=== PATIENT | female | born 1965 | race Caucasian/White ===

== ENCOUNTER 2018-11-09 19:38 | Emergency (ER) | payer OTHER ==
[~2018-11-09] VITALS: Ht 152.4 cm; Wt 108.9 kg
[~2018-11-09 19:38] MED LIST: NO HOME MEDS; NORCO 7.5-3251 EACH PO
[2018-11-09] MEDS ORDERED: ZYRTEC10 M5 PO (20:47)
[2018-11-09] MEDS ORDERED: IBUPROFEN 200200 M1 PO (20:48)
[2018-11-09] MEDS ORDERED: NAPROSYN500 MG PO (21:48)
[2018-11-09 22:14] VITALS: BP 172/84
== END 2018-11-09 22:14 | disposition home or self-care (01) ==
LOC: ER 19:38
DX: S93.491A Sprain of other ligament of right ankle, initial encounter (principal); W18.39XA Other fall on same level, initial encounter; Y92.89 Other specified places as the place of occurrence of the external cause; Y93.89 Activity, other specified; Y99.8 Other external cause status